=== PATIENT | female | born 1970 | race Caucasian/White ===

== ENCOUNTER 2020-06-04 16:37 | Emergency (ER) | payer BC, OTHER ==
[2020-06-04] MEDS ORDERED: NAPROSYN500 MG PO (18:48)
== END 2020-06-04 19:25 | disposition home or self-care (01) ==
LOC: ER1 16:37
DX: S63.502A Unspecified sprain of left wrist, initial encounter (principal); I10 Essential (primary) hypertension; J45.909 Unspecified asthma, uncomplicated; Z88.8 Allergy status to other drugs, medicaments and biological substances; W07.XXXA Fall from chair, initial encounter; Y92.009 Unspecified place in unspecified non-institutional (private) residence as the place of occurrence of the external cause
CPT/HCPCS: 73090; 99283